=== PATIENT | female | born 1980 | race Caucasian/White ===

== ENCOUNTER 2024-06-13 13:15 | Outpatient (AMB) | payer OTHER, SELFPAY ==
[2024-06-13 13:18] VITALS: BP 152/98; PULSE 86; O2SAT 96; BMI 32.8
--- NOTE | 2024-06-13 13:18 | MHC.PC.OV ---
Vital Signs 06/13/24 13:18 Height 5 ft 5 in Weight 197 lb BMI 32.8 BP 152/98 H Blood Pressure Location Lt brachial Position Sitting Pulse 86 Pulse Source Pulse Oximeter Pulse Oximetry (%) 96 Oxygen Delivery Method Room Air Intake Visit Reasons: Establish Care Administrative Services Assistant Required: No Allergies No Known Allergies Allergy (Verified 06/13/24 13:34) Medication List - Last Reconciled 06/13/24 by Yvette Jameson PA-C No Known Home Meds Tobacco use date assessed: 06/13/24 Dental Screening Dental Screen Date: 06/13/24 Did you have a dental visit in the last 12 months?: Yes Did you have a dental problem in the last 6 months where you did not have access to dental care?: No Was dental information given to patient?: Patient has dentist HPI Establish Care HPI Details 44 year old female coming to the office for the first time. Previously a patient at [facility] last seen 2019. Patient has several concerns today. She has a history of migraines since she was an adolescent and has had several imaging studies completed to evaluate this concern. She continues to headaches to 3 times per week often triggered by the weather and we will have associated nausea with these migraines. She also mentions having a rash on bilateral lower extremities that appeared over summer and is now a dry irritated patch of skin that we will occasionally flare up. She also has several moles that have been changing over the years. Lastly she mentions 2 years ago she had an injury to the right elbow after pulling on a rope and hearing a pop in the right elbow followed by pain and over the last 4 months at elbow has been having increased pain. Denies any recent trauma to that area. [facility] Surgical History History of hysterectomy History of cholecystectomy Family History (Updated 06/13/24 @ 13:39 by Yvette Jameson PA-C) Mother Breast cancer Sister Breast cancer Thyroid cancer Social History Housing: House Patient Tobacco Use Status: Never used Tobacco service: No Current occupational status: employed Cognitive needs: No Hearing needs: No Vision needs: No Female Reproductive History Menstrual control method: none Questionnaire PHQ-9 Over the last 2 weeks, how often have you been bothered by any of the following problems? 1. Little interest or pleasure in doing things: not at all 2. Feeling down, depressed, or hopeless: not at all 3. Trouble falling or staying asleep, or sleeping too much: not at all 4. Feeling tired or having little energy: not at all 5. Poor appetite or overeating: not at all 6. Feeling bad about yourself - or that you are a failure or have let yourself or your family down: not at all 7. Trouble concentrating on things, such as reading the newspaper or watching television: not at all 8. Moving or speaking so slowly that other people could have noticed. Or the opposite - being so fidgety or restless that you have been moving around a lot more than usual: not at all 9. Thoughts that you would be better off or of hurting yourself in some way: not at all Total score: 0 Depression Screening Interpretation: Negative Depression Screening Done: Yes 96437 - PHQ-9 Billing: Yes Source: Developed by Drs. Johnie Grayson, Tiffanie Marinelli, Fan Fernando and colleagues, with an educational delmi from [employer]. Thrive Questionnaire Date Thrive assessed: 06/11/24 I am a: Patient What is your living situation today?: I have a steady place to live Within the past 12 months, did the food you bought not last and you didn't have the money to get more?: Never true Within the past 12 months, did you worry whether your food would run out before you got money to buy more?: Never true Do you have trouble paying for medicines?: No Do you have trouble getting transportation to medical appointments?: No Do you have trouble paying your heating and electricity bill?: No Do you have trouble taking care of your child, family member or friend?: No Do you have trouble with day-to-day activities such as bathing, preparing meals, shopping, managing finances, etc.?: No Are you currently unemployed and looking for a job?: No Are you interested in more education?: No Currently or been in a relationship where the following occur: No concerns reported THRIVE Score: 0 AUDIT C Alcohol Use Questionnaire (AUDIT-C) 1. How often do you have a drink containing alcohol?: Monthly or less 2. How many drinks containing alcohol do you have on a typical day when you are drinking?: 1 or 2 3. How often do you have six or more drinks on one occasion?: Never Total Score: 1 MORRIS-7 AMB Questionnaire MORRIS-7 Date MORRIS - 7 assessed: 06/13/24 Feeling nervous, anxious, or on edge: 1 = Several days Not being able to stop or control worryin = Several days Worrying too much about different things: 1 = Several days Trouble relaxin = Several days Being so restless that it is hard to sit still: 1 = Several days Becoming easily annoyed or irritable: 1 = Several days Feeling afraid as if something awful might happen: 0 = Not at all Total MORRIS-7 score (0-4 normal; 5-9 mild; 10-14 moderate; 15-21 severe): 6 Source: Developed by Drs. Johnie Grayson, Tiffanie Marinelli, Fan Fernando and colleagues, with an educational delmi from [employer]. MORRIS-7 Assessment Billing MORRIS-7 Assessment Tool: MORRIS-7 Assessment 79557 Review of Systems Const Denies body aches, Denies fatigue, Denies fever(s), Denies frequent falls, Reports headache(s) and Denies weakness Eyes Reports no additional complaints and Denies change in vision ENT Denies dizziness, Denies facial pain, Reports headache(s) and Denies nasal congestion Card Denies chest pain, Denies lightheadedness and Denies dyspnea Resp Denies dyspnea GI Denies abdominal pain, Denies constipation, Denies dyspepsia, Denies diarrhea, Reports nausea (with migraines) and Denies vomiting Musc Denies back pain and Denies myalgias Skin/Breast Reports as per HPI Neuro Denies dizziness, Denies frequent falls, Reports headache(s) and Denies weakness Psych Reports no additional complaints Endo Denies fatigue Physical exam (Primary Care) Vital Signs: Last Vital Signs Pulse 86 06/13/24 13:18 BP 152/98 H 06/13/24 13:18 Pulse Ox 96 06/13/24 13:18 Oxygen Delivery Method Room Air 06/13/24 13:18 BMI result Body Mass Index 32.8 Tobacco/Smoking Status: Tobacco use Status Tobacco use date assessed 06/13/24 06/13/24 13:19 Patient Tobacco Use Status Never used Tobacco 06/13/24 13:26 PHQ-9: PHQ-9 Score PHQ-9: Total score 0 06/13/24 13:26 Depression Screening Interpretation: Negative Thrive Assessment: Date of Thrive Assessment Date Thrive assessed 06/11/24 06/13/24 13:19 Currently or been in a relationship where the following occur: No concerns reported Const General: cooperative, healthy appearing, comfortable and no acute distress Orientation/consciousness: patient oriented x3 HENMT Head: Yes normocephalic Ears: hearing grossly normal bilaterally General nose exam: Normal external nose present Eyes General: appearance normal, both eyes and all related structures Conjunctivae: conjunctivae normal Neck Neck: Yes full ROM and Yes no lymphadenopathy Resp Effort & Inspection: normal respiratory effort Auscultation: clear to auscultation bilaterally, no crackles, no rales, no rhonchi and no wheezes Cardio Rate: regular rate Rhythm: regular rhythm Skin Other: Multiple small atypical nevi with irregular borders on the left forearm, left lower leg. Dry, scaly rash on he distal aspect of the left lower extremity and small annular patch of dry rash on the distal aspect of the right lower extremity General skin exam: no rashes or lesions noted Neuro General: patient oriented x3 Gait exam (Neuro): Normal gait present Extrem General: Yes normal to inspection, Yes full ROM and No edema Psych Affect: normal affect Attitude: cooperative Insight: Good insight present (Psych) Judgement: Good judgement present (Psych) Coding Level of Care Code New Pt Level 4 (19462) Diagnoses Elevated blood pressure reading without diagnosis of hypertension R03.0 Diarrhea R19.7 Contact dermatitis L25.9 Atypical nevi D22.9 Right elbow pain M25.521 Difficulty concentrating R41.840 Additional Codes MORRIS-7 Assessment Billing - MORRIS-7 Assessment Tool: MORRIS-7 Assessment 43717 ([id number]) Assessment & Plan Assessment & Plan (1) Elevated blood pressure reading without diagnosis of hypertension: Code(s): R03.0 - Elevated blood-pressure reading, without diagnosis of hypertension Category: Medical Plan: Patient's blood pressure was elevated on exam today 152/98 and elevated when retaken. Advised patient to obtain blood pressure cuff and take blood pressure 3 to 4 times per week and bring log of pressures to next appointment in 6 weeks. (2) Diarrhea: Code(s): R19.7 - Diarrhea, unspecified Category: Medical Plan: Patient has chronic diarrhea status post cholecystectomy and was previously on colestipol given to her by her previous PCP. Prescription sent. (3) Contact dermatitis: Code(s): L25.9 - Unspecified contact dermatitis, unspecified cause Category: Medical Plan: Patient had contact dermatitis on distal aspect of bilateral lower extremities. Prescription sent for triamcinolone lotion to be used as needed for irritation and itching. Advised patient not to use for longer than 2 weeks at a time. (4) Atypical nevi: Code(s): D22.9 - Melanocytic nevi, unspecified Category: Medical Plan: Referral to Dermatology placed at this time. Advised patient to take pictures of current lesions. (5) Right elbow pain: Code(s): M25.521 - Pain in right elbow Category: Medical Plan: Ordered for right elbow x-ray for further evaluation. (6) Difficulty concentrating: Code(s): R41.840 - Attention and concentration deficit Category: Medical Plan: Patient states she is having difficulty concentrating and has never been evaluated for ADHD in the past. She feels she has a hard time completing her daily activities due to difficulty concentrating and occasional memory loss. We will trial guanfacine 1 mg daily for attention and follow up in 6 weeks. Plan Ordered for updated blood work. Referral for mammogram placed and referral for routine gynecological exam is placed as well. This note was constructed using voice recognition software. While every effort has been made to ensure accuracy and environmental communications specialist, still areas may have been included sometimes these areas may affect the content or meeting of the given symptoms. Total time spent caring for the patient today was 30 minutes. This includes time spent before the visit reviewing the chart, time spent during the visit, and time spent after the visit and documentation. Orders: Orders Free T4 (Free Thyroxine) Today Z00.00 - Encounter for general adult medical examination without abnormal findings TSH reflex Free T4 Today Z00.00 - Encounter for general adult medical examination without abnormal findings Vitamin D 25-OH (D2 and D3) Today Z00.00 - Encounter for general adult medical examination without abnormal findings XR elbow RT 2V Today M25.521 - Pain in right elbow Complete Blood Count Auto Diff Today Z00.00 - Encounter for general adult medical examination without abnormal findings Comprehensive Met. Panel Today Z00.00 - Encounter for general adult medical examination without abnormal findings Lipid Panel Today Z00.00 - Encounter for general adult medical examination without abnormal findings Vitamin B12 and Folate Today Z00.00 - Encounter for general adult medical examination without abnormal findings Hemoglobin A1c Today Z00.00 - Encounter for general adult medical examination without abnormal findings MM tomosynthesis screening BI Today Z12.31 - Encounter for screening mammogram for malignant neoplasm of breast Referrals QUALITY CONTROL ENGINEERING TECHNICIAN Referral Z01.419 - Encounter for gynecological examination (general) (routine) without abnormal findings Dermatology Referral D22.9 - Melanocytic nevi, unspecified, L25.9 - Unspecified contact dermatitis, unspecified cause Medications: New colestipol 2 grams (2 x 1 gram) PO BID 60 tabs 2RF triamcinolone acetonide 0.1% 1 appl topical DAILY 60 mL 0RF guanfacine 1 mg PO BEDTIME 30 tabs 2RF
== END 2024-06-13 14:12 | disposition home or self-care (01) ==
DX: R03.0 Elevated blood-pressure reading, without diagnosis of hypertension (principal); R19.7 Diarrhea, unspecified; L25.9 Unspecified contact dermatitis, unspecified cause; D22.9 Melanocytic nevi, unspecified; M25.521 Pain in right elbow; R41.840 Attention and concentration deficit

== ENCOUNTER → 2024-06-13 13:17 | Outpatient (BNVA) | payer OTHER, SELFPAY | DX: R03.0 Elevated blood-pressure reading, without diagnosis of hypertension (principal); R19.7 Diarrhea, unspecified; L25.9 Unspecified contact dermatitis, unspecified cause; D22.9 Melanocytic nevi, unspecified; M25.521 Pain in right elbow; R41.840 Attention and concentration deficit | CPT/HCPCS: 96127 ==

== ENCOUNTER 2024-06-27 10:52 | Outpatient (REF) | payer OTHER, SELFPAY ==
--- NOTE | ~2024-06-27 | XR_ITS ---
EXAMINATION: XR ELBOW, RIGHT CLINICAL INFORMATION: Pain in right elbow M25.521. Patient states pain in elbow for a while. COMPARISON: None available TECHNIQUE: AP, lateral, and oblique views of the right elbow. FINDINGS: The bones and soft tissues are normal. No fracture or joint effusion. Alignment is anatomic. Joint spaces are maintained. XR/XR elbow RT 2V IMPRESSION: Normal right elbow. Electronically signed by: Yaron Banerjee MD 08/23/2024 09:30 AM B[facility]
[2024-06-27 11:06] LABS: MANUAL DIFF FLAG NO
[2024-06-27 12:02] LABS: Basophils Percent Auto 0.5 % (0-2); Eosinophils Absolute Auto 0.3 X10*3/uL (0.0-0.4); Eosinophils Percent Auto 3.4 % (0-4); Hematocrit 42.8 % (37.0-47.0); Hemoglobin 14.2 g/dl (12.0-16.0); Imm Gran Abs Auto 0.03 X10*3/uL (0.00-0.03); Imm Gran Pct Auto 0.4 % (0.0-0.4); Lymphocytes Absolute Auto 2.5 X10*3/uL (1.2-4.9); Lymphocytes Percent Auto 31.1 % (20-40); Mean Corpuscular HGB Conc 33.2 g/dl (31.0-35.0); Mean Corpuscular Hemoglobin 28.9 pg (27.0-33.0); Mean Platelet Volume 9.1 fL (9.4-12.3); Monocytes Absolute Auto 0.3 X10*3/uL (0.1-1.2); Monocytes Percent Auto 3.7 % (2-11); Neutrophils Absolute Auto 4.9 x10*3/uL (2.0-8.3); Neutrophils Percent Auto 60.9 % (45-73); Platelet Count 296 X10*3/uL (160-400); Red Blood Count 4.92 X10*6/uL (4.20-5.50); Red Cell Distribution Width 11.7 % (11.0-16.0)
[2024-06-27 12:08] LABS: Estimated Average Glucose 105 mg/dL; Hemoglobin A1C 126.8251 umol/L; Hemoglobin A1c % 5.3 % (<6.0); Total Hemoglobin (HGBA1C) 3742.2227 umol/L
[2024-06-27 12:53] LABS: Alanine Aminotransferase 24 U/L (0-31); Albumin Level 4.4 g/dL (3.5-5.0); Alkaline Phosphatase 82 U/L (39-117); Anion Gap 9 (12-20); Aspartate Amino Transferase 28 U/L (5-31); Bilirubin Total 0.3 mg/dL (0.0-1.0); Blood Urea Nitrogen 10 mg/dL (9-16); Calcium 9.4 mg/dL (8.4-10.2); Carbon Dioxide 29 mmol/L (22-29); Chloride 105 mmol/L (96-108); Cholesterol 170 mg/dL (<200); Estimated Glomerular Filt Rate > 60; Glucose Random 95 mg/dL (60-115); HDL Cholesterol 43 mg/dL (>40); LDL Cholesterol Calculated 90 mg/dL (<100); Sodium 139 mmol/L (135-145); Total Protein 7.4 g/dL (6.5-8.0); Triglycerides 185 mg/dL (<150)
[2024-06-27 12:55] LABS: TSH reflex Free T4 2.24 uIU/mL (0.32-4.0)
[2024-06-27 13:07] LABS: Folate 10.5 ng/mL (> or = 4.0); Vitamin B12 282 pg/mL (200-900)
[2024-07-01 14:09] LABS: Vitamin D 25-OH, D2 <4 ng/mL; Vitamin D 25-OH, D3 18 ng/mL; Vitamin D 25-OH, Total 18 ng/mL (30-100)
== END 2024-06-27 10:53 | disposition home or self-care (01) ==
LOC: HO.LAB 10:52
DX: Z00.00 Encounter for general adult medical examination without abnormal findings (principal); M25.521 Pain in right elbow; Z13.1 Encounter for screening for diabetes mellitus
CPT/HCPCS: 36415; 73070; 80053; 80061; 82306; 82607; 82746; 83036; 84439; 84443; 85025

== ENCOUNTER 2024-07-25 13:33 | Outpatient (REF) | payer OTHER, SELFPAY | END 2024-07-25 13:34 | disposition home or self-care (01) | LOC: HO.MAMMO 13:33 | DX: Z12.31 Encounter for screening mammogram for malignant neoplasm of breast (principal) | CPT/HCPCS: 77063; 77067 ==

== ENCOUNTER → 2024-07-25 13:45 | Outpatient (BNV) | payer OTHER, SELFPAY | PROVIDERS: Visit Provider Internal Medicine | DX: Z12.31 Encounter for screening mammogram for malignant neoplasm of breast (principal) | CPT/HCPCS: 77063; 77067 ==

== ENCOUNTER 2024-07-25 14:15 | Outpatient (AMB) | payer OTHER, SELFPAY ==
--- NOTE | 2024-07-25 14:27 | MHC.PC.OV ---
Vital Signs 07/25/24 14:28 Height 5 ft 5 in Weight 197 lb 4 oz BMI 32.8 BP 130/88 Blood Pressure Location Lt brachial Position Sitting Pulse 88 Pulse Source Pulse Oximeter Pulse Oximetry (%) 95 Oxygen Delivery Method Room Air Intake Visit Reasons: f/u BP Intake Note: Patient is here to follow up on BP. Warehouse Laborer Required: No Cook Larder: Not Required per policy Accompanied by: Self / Same As Patient Allergies No Known Allergies Allergy (Verified 07/25/24 14:28) Medication List - Last Reconciled 07/25/24 by Yvette Jameson PA-C colestipol 2 grams (2 x 1 gram) PO BID guanfacine 1 mg PO BEDTIME triamcinolone acetonide 0.1% 1 appl topical DAILY Tobacco use date assessed: 07/25/24 Dental Screening Dental Screen Date: 06/13/24 HPI f/u BP HPI Details 44-year-old female coming in for follow up. Blood pressures at home have been in the 130/86 range when taken. She feels the guanfacine has been helping with the blood pressure and with the attention. She is no longer having headaches in the morning but does feel that her ADHD could be better managed. She has an appointment with Dermatology in September. [facility] Surgical History History of hysterectomy History of cholecystectomy Family History (Updated 07/25/24 @ 14:28 by EDVIN Romero) Mother Breast cancer Sister Breast cancer Thyroid cancer Social History Housing: House Patient Tobacco Use Status: Never used Tobacco e-Cigarette/Vaping Use: Never Used Second Hand Smoke Exposure: No service: No Current occupational status: employed Cognitive needs: No Hearing needs: No Vision needs: No Questionnaire Thrive Questionnaire Date Thrive assessed: 06/11/24 I am a: Patient What is your living situation today?: I have a steady place to live Within the past 12 months, did the food you bought not last and you didn't have the money to get more?: Never true Within the past 12 months, did you worry whether your food would run out before you got money to buy more?: Never true Do you have trouble paying for medicines?: No Do you have trouble getting transportation to medical appointments?: No Do you have trouble paying your heating and electricity bill?: No Do you have trouble taking care of your child, family member or friend?: No Do you have trouble with day-to-day activities such as bathing, preparing meals, shopping, managing finances, etc.?: No Are you currently unemployed and looking for a job?: No Are you interested in more education?: No Please select the resources that you would like help with: None Currently or been in a relationship where the following occur: No concerns reported THRIVE Score: 0 MORRIS-7 AMB Questionnaire MORRIS-7 Date MORRIS - 7 assessed: 06/13/24 Source: Developed by Drs. Johnie Grayson, Tifafnie Marinelli, Fan Fernando and colleagues, with an educational delmi from [employer]. Review of Systems Const Denies body aches, Denies chills, Denies fever(s), Denies headache(s) and Denies poor appetite Eyes Reports no additional complaints ENT Denies dizziness and Denies headache(s) Card Denies chest pain, Denies irregular heart rhythm, Denies lightheadedness and Denies dyspnea Resp Denies cough and Denies dyspnea GI Denies abdominal pain, Denies constipation, Denies diarrhea, Denies nausea and Denies vomiting Reports no additional complaints Musc Reports no additional complaints and Denies abnormal gait Skin/Breast Reports system reviewed and no additional complaints, except as documented Neuro Denies abnormal gait, Denies dizziness and Denies headache(s) Psych Reports no additional complaints Physical exam (Primary Care) Vital Signs: Last Vital Signs Pulse 88 07/25/24 14:28 BP 130/88 07/25/24 14:28 Pulse Ox 95 07/25/24 14:28 Oxygen Delivery Method Room Air 07/25/24 14:28 BMI result Body Mass Index 32.8 Tobacco/Smoking Status: Tobacco use Status Tobacco use date assessed 07/25/24 07/25/24 14:34 Patient Tobacco Use Status Never used Tobacco 07/25/24 14:34 e-Cigarette/Vaping Use Never Used 07/25/24 14:34 Thrive Assessment: Date of Thrive Assessment Date Thrive assessed 06/11/24 07/25/24 14:34 Currently or been in a relationship where the following occur: No concerns reported Const General: cooperative, healthy appearing, comfortable and no acute distress Orientation/consciousness: patient oriented x3 HENMT Head: Yes normocephalic Ears: hearing grossly normal bilaterally General nose exam: Normal external nose present Eyes General: appearance normal, both eyes and all related structures Conjunctivae: conjunctivae normal Neck Neck: Yes full ROM and Yes no lymphadenopathy Resp Effort & Inspection: normal respiratory effort Auscultation: clear to auscultation bilaterally, no crackles, no rales, no rhonchi and no wheezes Cardio Rate: regular rate Rhythm: regular rhythm Skin General skin exam: no rashes or lesions noted Neuro General: patient oriented x3 Gait exam (Neuro): Normal gait present Extrem General: Yes normal to inspection, Yes full ROM and No edema Psych Affect: normal affect Attitude: cooperative Insight: Good insight present (Psych) Judgement: Good judgement present (Psych) Coding Level of Care Code Est Pt Level 3 (04295) Diagnoses Difficulty concentrating R41.840 Elevated blood pressure reading without diagnosis of hypertension R03.0 Assessment & Plan Assessment & Plan (1) Difficulty concentrating: Code(s): R41.840 - Attention and concentration deficit Category: Medical Plan: Feels her ADHD has been improving but still will have difficulty concentrating. We will increase guanfacine to 2 mg at nighttime. Follow up in 3 months. (2) Elevated blood pressure reading without diagnosis of hypertension: Code(s): R03.0 - Elevated blood-pressure reading, without diagnosis of hypertension Category: Medical Plan: Continue on current blood pressure medication. Avoid salt intake and encourage healthy diet and regular exercise. Blood pressure has been improving on guanfacine we will increase to 2 mg as it is still mildly elevated home. Follow up in 3 months Plan This note was constructed using voice recognition software. While every effort has been made to ensure accuracy and lunchroom attendant, still areas may have been included sometimes these areas may affect the content or meeting of the given symptoms. Total time spent caring for the patient today was 20 minutes. This includes time spent before the visit reviewing the chart, time spent during the visit, and time spent after the visit and documentation. Medications: New guanfacine 2 mg PO BEDTIME 30 tabs 0RF On Hold guanfacine Hold Comment: Dose Change 1 mg PO BEDTIME 30 tabs 2RF
[2024-07-25 14:28] VITALS: BP 130/88; PULSE 88; O2SAT 95; BMI 32.8
== END 2024-07-25 15:31 | disposition home or self-care (01) ==
DX: R41.840 Attention and concentration deficit (principal); R03.0 Elevated blood-pressure reading, without diagnosis of hypertension

== ENCOUNTER 2024-08-04 09:51 | Outpatient (AMB) | payer OTHER, SELFPAY ==
--- NOTE | 2024-08-04 09:53 | MHC.OFFVIS ---
Vital Signs 08/04/24 09:54 Height 5 ft 5 in Weight 202 lb BMI 33.6 BP 120/72 Intake Visit Reasons: New patient annual Glazing Department Supervisor Required: No Information Interpreted: clinical only Assistant Education Director: Assistant Education Director Present Allergies No Known Allergies Allergy (Verified 08/04/24 09:54) Medication List - Last Reconciled 08/04/24 by Jessenia Mason CNM colestipol 2 grams (2 x 1 gram) PO BID guanfacine 1 mg PO BEDTIME guanfacine 2 mg PO BEDTIME triamcinolone acetonide 0.1% 1 appl topical DAILY Is last menstrual period known: No (hysterectomy,2019) HPI HPI New patient annual: Details: Patient is here for registered pharmacist exam. She receives her primary care through new insurance at [facility]. Her only issues are ADHD and mild elevated blood pressures for which she is treated with the same medication seems to be helping with both. She is planning to try and better and work on increasing her exercise back to previous levels as she has gradually gained more weight. She has had fasting blood work done says the was triglycerides and she has recently had a mammogram. 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 She had a hysterectomy in 2019 because of a very enlarged uterus from fibroids. It was causing pain and pressure and bleeding all relieved by the hysterectomy she had her postoperative exam and then everything close down after COVID. And then her doctor at [facility] retired. She has no concerns at all about STDs she does not remember ever having had an abnormal Pap smear and she has no abnormal discharge but she is open to screening with the vaginal testing [facility] Surgical History (Updated 08/04/24 @ 10:51 by Jessenia Mason CNM) History of hysterectomy History of cholecystectomy Family History Mother Breast cancer Sister Breast cancer Thyroid cancer Social History Housing: House Patient Tobacco Use Status: Never used Tobacco e-Cigarette/Vaping Use: Never Used Second Hand Smoke Exposure: No service: No Current occupational status: employed Cognitive needs: No Hearing needs: No Vision needs: No Female Reproductive History Menstrual Age of Menarche: 11 Duration of menses: 3-5 days control method: none Total pregnancies: 2 Full term: 2 History of abnormal pap smear: No (2019,negative per pt.) Date of Mammogram: 07/25/24 (pending) Physical Exam Vital Signs: Last Vital Signs BP 120/72 08/04/24 09:54 BMI result Body Mass Index 33.6 Const General: healthy appearing, comfortable, no acute distress, well developed and alert Nutritional Appearance: average body habitus Orientation/consciousness: patient oriented x3 Limitations: no limitations HEENT Head: Yes normocephalic Neck Neck: Yes normal visual inspection Thyroid: Thyroid normal Chest Chest palpation & inspection: normal inspection of the chest Breast/axilla inspection: normal inspection of the breasts and normal inspection of the axillae Breast/axilla palpation: normal palpation of the breasts and normal palpation of the axillae Resp Effort & Inspection: normal respiratory effort GI Inspection: Yes normal to inspection, No Abdominal wall edema and No distended Palpation (GI): Soft to palpation and nontender General: Yes bladder normal to palpation External Female Exam: normal external appearance and normal appearance of the urethra Speculum Exam - Vagina: normal appearance of the vagina, normal palpation and normal vaginal discharge Bimanual exam- vagina & uterus: normal bimanual exam, normal palpation, bladder normal to palpation, consistency normal and non-tender Bimanual Exam- Adnexa, other: normal adnexae, no masses, normal and No adnexal tenderness Neuro General: patient oriented x3 Assessment & Plan Assessment & Plan (1) Well woman exam: Code(s): Z01.419 - Encounter for gynecological examination (general) (routine) without abnormal findings Category: Medical (2) Elevated blood pressure reading without diagnosis of hypertension: Code(s): R03.0 - Elevated blood-pressure reading, without diagnosis of hypertension Category: Medical (3) Perimenopause: Code(s): N95.1 - Menopausal and female climacteric states Category: Medical (4) History of hysterectomy: Comment: For symptomatic very enlarged fibroid uterus 14-16wsize by her description, 2019, nicole Moctezuma Code(s): Z90.710 - Acquired absence of both cervix and uterus Category: Surgical (5) Cervical cancer screening: Comment: States she has no history of abnormal Pap smears or HPV co testing past. Hysterectomy was done for benign/fibroid reason. No further Paps indicated Code(s): Z12.4 - Encounter for screening for malignant neoplasm of cervix Category: Medical Plan -----Discussed in this visit the following: healthy balanced diet, regular and consistent exercise, getting recommended health screens, doing the best she can for her particular health concerns, kegel exercises, pap smear screening and followup recommendations, mammography screening and SBE, normal changes in cycles in her life stage--- . Reviewed normal dio menopausal symptoms that women in her age group we will experience more as time goes by. Reviewed healthy diet exercise and weight. She is determined to get back her spin bike and do 30 minutes which is 12 miles for her. She has no concerns about STDs she has never had an abnormal Pap smear and reviewed the asccp guidelines so she never another pap. Discussed cyclic changes that she may still experience and how these are definitely protecting her health. She is going to be working it and diet and exercise. Reviewed that while we say yearly she has a absolutely registered pharmacist concerns needs to direct her health care visits a dollars to more visits that is her choice recommend yearly mammograms she is getting. Coding Level of Care Code New Pt Prev Care 40-64y(89475) Diagnoses Well woman exam Z01.419 Elevated blood pressure reading without diagnosis of hypertension R03.0 Perimenopause N95.1 History of hysterectomy Z90.710 Cervical cancer screening Z12.4
[2024-08-04 09:54] VITALS: BP 120/72; BMI 33.6
== END 2024-08-04 10:42 | disposition home or self-care (01) ==
PROVIDERS: Visit Provider Advanced Practice Midwife
DX: Z01.419 Encounter for gynecological examination (general) (routine) without abnormal findings (principal); R03.0 Elevated blood-pressure reading, without diagnosis of hypertension; N95.1 Menopausal and female climacteric states; Z90.710 Acquired absence of both cervix and uterus
CPT/HCPCS: 99386; 99459

== ENCOUNTER 2024-10-24 09:53 | Outpatient (AMB) | payer OTHER, SELFPAY ==
--- NOTE | 2024-10-24 09:58 | A.OFFPC_ITS ---
Vital Signs 10/24/24 10:00 10/24/24 10:27 Height 5 ft 5 in Weight 198 lb 4 oz BMI 33.0 BP 130/60 128/86 Blood Pressure Location Lt brachial Lt brachial Position Sitting Sitting Pulse 75 Pulse Source Pulse Oximeter Temp 97.7 F Temp Source Temporal Artery Scan Pulse Oximetry (%) 98 Oxygen Delivery Method Room Air Intake Visit Reasons: annual physical Intake Note: Patient is here today for a physical. Warehouse Representative Required: No Digital Printer Operator: Not Required per policy Accompanied by: Self / Same As Patient Allergies No Known Allergies Allergy (Verified 10/24/24 10:01) Medication List - Last Reconciled 10/24/24 by Yvette Jameson PA-C colestipol 2 grams (2 x 1 gram) PO BID guanfacine 1 mg PO BEDTIME guanfacine 2 mg PO BEDTIME triamcinolone acetonide 0.1% 1 appl topical DAILY Tobacco use date assessed: 10/24/24 Dental Screening Dental Screen Date: 10/24/24 Did you have a dental visit in the last 12 months?: Yes Did you have a dental problem in the last 6 months where you did not have access to dental care?: No Was dental information given to patient?: Patient has dentist HPI annual physical HPI Details 44-year-old female with past medical his tory of elevated blood pressure, perimenopause, difficulty concentrating and obesity last seen 07/2024 coming in for annual exam.? In review of the notes, patient was seen by Gynecology 08/04/2024 for annual Pap smear. Presenting for a wellness visit focused on chronic disease management and preventive care. She has a history of Essential Hypertension, currently treated with guanfacine. The medication also aids in mild ADHD symptoms, though its effectiveness fluctuates. She was previously diagnosed with Generalized Anxiety Disorder, experiencing significant improvement after personal life changes. She reports weight gain secondary to changes in dietary and exercise habits and desires to establish a more structured exercise routine. Mammogram: Completed 07/2024 Pap smear: Recently completed 07/2024 Colonoscopy: Referral placed today to [facility] Medical History Vaginal discharge Surgical History History of hysterectomy History of cholecystectomy Family History Mother Breast cancer Sister Breast cancer Thyroid cancer Social History Housing: House Patient Tobacco Use Status: Never used Tobacco e-Cigarette/Vaping Use: Never Used Second Hand Smoke Exposure: No service: No Current occupational status: employed Cognitive needs: No Hearing needs: No Vision needs: No Female Reproductive History Menstrual Age of Menarche: 11 Questionnaire PHQ-9 Over the last 2 weeks, how often have you been bothered by any of the following problems? 1. Little interest or pleasure in doing things: not at all 2. Feeling down, depressed, or hopeless: not at all 3. Trouble falling or staying asleep, or sleeping too much: several days 4. Feeling tired or having little energy: several days 5. Poor appetite or overeating: not at all 6. Feeling bad about yourself - or that you are a failure or have let yourself or your family down: not at all 7. Trouble concentrating on things, such as reading the newspaper or watching television: several days 8. Moving or speaking so slowly that other people could have noticed. Or the opposite - being so fidgety or restless that you have been moving around a lot more than usual: not at all 9. Thoughts that you would be better off or of hurting yourself in some way: not at all Total score: 3 Depression Screening Interpretation: Negative Depression Screening Done: Yes Source: Developed by Drs. Johnie Grayson, Tiffanie Marinelli, Fan Fernando and colleagues, with an educational delmi from [employer]. Thrive Questionnaire Date Thrive assessed: 10/17/24 I am a: Patient What is your living situation today?: I have a steady place to live Within the past 12 months, did the food you bought not last and you didn't have the money to get more?: Never true Within the past 12 months, did you worry whether your food would run out before you got money to buy more?: Never true Do you have trouble paying for medicines?: No Do you have trouble getting transportation to medical appointments?: No Do you have trouble paying your heating and electricity bill?: No Do you have trouble taking care of your child, family member or friend?: No Do you have trouble with day-to-day activities such as bathing, preparing meals, shopping, managing finances, etc.?: No Are you currently unemployed and looking for a job?: No Are you interested in more education?: No Please select the resources that you would like help with: None Currently or been in a relationship where the following occur: No concerns reported THRIVE Score: 0 AUDIT C Alcohol Use Questionnaire (AUDIT-C) 1. How often do you have a drink containing alcohol?: Never 2. How many drinks containing alcohol do you have on a typical day when you are drinking?: 1 or 2 3. How often do you have six or more drinks on one occasion?: Never Total Score: 0 MORRIS-7 AMB Questionnaire MORRIS-7 Date MORRIS - 7 assessed: 10/24/24 Feeling nervous, anxious, or on edge: 1 = Several days Not being able to stop or control worryin = Several days Worrying too much about different things: 1 = Several days Trouble relaxin = Several days Being so restless that it is hard to sit still: 0 = Not at all Becoming easily annoyed or irritable: 1 = Several days Feeling afraid as if something awful might happen: 0 = Not at all Total MORRIS-7 score (0-4 normal; 5-9 mild; 10-14 moderate; 15-21 severe): 5 Source: Developed by Drs. Johnie Grayson, Tiffanie Marinelli, Fan Fernando and colleagues, with an educational delmi from [employer]. MORRIS-7 Assessment Billing MORRIS-7 Assessment Tool: MORRIS-7 Assessment 95918 Review of Systems Const Denies body aches, Denies chills, Denies fever(s), Denies headache(s) and Denies poor appetite Eyes Reports no additional complaints ENT Denies dysphagia, Denies dizziness, Denies headache(s) and Denies odynophagia Card Denies chest pain, Denies syncope, Denies edema, Denies irregular heart rhythm, Denies lightheadedness and Denies dyspnea Resp Denies cough and Denies dyspnea GI Denies abdominal pain, Denies constipation, Denies dysphagia, Denies diarrhea, Denies nausea, Denies odynophagia and Denies vomiting Reports no additional complaints Musc Reports no additional complaints and Denies abnormal gait Skin/Breast Reports system reviewed and no additional complaints, except as documented Neuro Denies abnormal gait, Denies dizziness, Denies syncope and Denies headache(s) Psych Reports no additional complaints Physical exam (Primary Care) Vital Signs: Last Vital Signs Temp 97.7 F 10/24/24 10:00 Pulse 75 10/24/24 10:00 BP 128/86 10/24/24 10:27 Pulse Ox 98 10/24/24 10:00 Oxygen Delivery Method Room Air 10/24/24 10:00 BMI result Body Mass Index 33.0 Tobacco/Smoking Status: Tobacco use Status Tobacco use date assessed 10/24/24 10/24/24 10:00 Patient Tobacco Use Status Never used Tobacco 10/24/24 10:00 e-Cigarette/Vaping Use Never Used 10/24/24 10:00 PHQ-9: PHQ-9 Score PHQ-9: Total score 3 10/24/24 10:24 Depression Screening Interpretation: Negative Thrive Assessment: Date of Thrive Assessment Date Thrive assessed 10/17/24 10/24/24 10:00 Currently or been in a relationship where the following occur: No concerns reported Const General: cooperative, healthy appearing, comfortable and no acute distress Orientation/consciousness: patient oriented x3 HENMT Head: Yes normocephalic Ears: hearing grossly normal bilaterally, external ears normal, TM's normal bilaterally and EAC's normal General nose exam: Normal external nose present Face and sinus: Yes normal facial exam and Yes sinuses nontender Mouth: Normal oral and palatal mucosa present and tongue normal Throat: Yes posterior oropharynx normal Eyes General: appearance normal, both eyes and all related structures Conjunctivae: conjunctivae normal Pupils: Equal, round and reactive pupils present EOM: EOMs intact bilaterally and No Nystagmus present Neck Neck: Yes normal visual inspection, Yes full ROM and Yes no lymphadenopathy Chest Chest palpation & inspection: normal inspection of the chest Resp Effort & Inspection: normal respiratory effort Auscultation: clear to auscultation bilaterally, no crackles, no rales, no rhonchi, no wheezes and breath sounds present Cardio Rate: regular rate Rhythm: regular rhythm Peripheral pulses: radial pulses present and dorsalis pedis present GI Inspection: Yes normal to inspection and No Abdominal wall edema Palpation (GI): Soft to palpation, not firm and nontender Auscultation: normal bowel sounds Rectal Exam - Female: deferred General: Yes no CVA tenderness Back/Spine/Pelvis Back: no CVA tenderness Skin General skin exam: no rashes or lesions noted Neuro General: patient oriented x3 Cranial nerves: Yes Equal, round and reactive pupils present, Yes Midline tongue present, Yes Ability to bilaterally elevate shoulders present and No Nystagmus present Gait exam (Neuro): Normal gait present Extrem General: Yes normal to inspection, Yes full ROM, No no pedal edema and No edema Psych Speech and movement: Normal speech and movement present Affect: normal affect Insight: Good insight present (Psych) Judgement: Good judgement present (Psych) Coding Level of Care Code Est Pt Prev Care 40-64y(37917) Diagnoses Family history of breast cancer Z80.3 Cervical cancer screening Z12.4 Difficulty concentrating R41.840 Atypical nevi D22.9 Elevated blood pressure reading without diagnosis of hypertension R03.0 Annual physical exam Z00.00 Obesity (BMI 30.0-34.9) E66.811 Diarrhea R19.7 Additional Codes MORRIS-7 Assessment Billing - MORRIS-7 Assessment Tool: MORRIS-7 Assessment 20825 ([id number]) Assessment & Plan Assessment & Plan (1) Family history of breast cancer: Code(s): Z80.3 - Family history of malignant neoplasm of breast Category: Medical Plan: Mammogram recently completed 07/1024 continue with yearly screening (2) Cervical cancer screening: Comment: States she has no history of abnormal Pap smears or HPV co testing past. Hysterectomy was done for benign/fibroid reason. No further Paps indicated Code(s): Z12.4 - Encounter for screening for malignant neoplasm of cervix Category: Medical Plan: Recently completed by Gynecology 07/2024 (3) Difficulty concentrating: Code(s): R41.840 - Attention and concentration deficit Category: Medical Plan: Patient currently on guanfacine 2 mg at bedtime and finds this mildly beneficial. Plan to add Atomoxetine to medication regimen and follow up in 3 months. (4) Atypical nevi: Code(s): D22.9 - Melanocytic nevi, unspecified Category: Medical Plan: Referral was placed to dermatology at last visit. She has seen the spanish interpreter and is happy the nevi seem to be resolving with treatement. (5) Elevated blood pressure reading without diagnosis of hypertension: Code(s): R03.0 - Elevated blood-pressure reading, without diagnosis of hypertension Category: Medical Plan: Blood pressure at goal today continue on the Guanfacine. Avoid salt intake and encourage healthy diet and regular exercise. (6) Annual physical exam: Code(s): Z00.00 - Encounter for general adult medical examination without abnormal findings Category: Medical Plan: Patient is up-to-date on all recommended routine screenings and vaccinations for her age. Blood work is up-to-date and referral was placed to gastroenterology today for colonoscopy screening. (7) Obesity (BMI 30.0-34.9): Code(s): E66.811 - Obesity, class 1 Category: Medical Plan: Healthy diet and regular exercise is encouraged. Behavioral modifications addressing lifestyle changes were reinforced, particularly in the domains of exercise and dietary intake. (8) Diarrhea: Code(s): R19.7 - Diarrhea, unspecified Category: Medical Plan: Patient having diarrhea status post cholecystectomy on colestipol and has good improvement with this medication. Plan This note was constructed using voice recognition software. While every effort has been made to ensure accuracy and tire builder heavy service, still areas may have been included sometimes these areas may affect the content or meeting of the given symptoms. Total time spent caring for the patient today was thirty minutes. This includes time spent before the visit reviewing the chart, time spent during the visit, and time spent after the visit and documentation. Patient was informed and verbally consented to the use of an ambient scribe for clinic note documentation during this visit. Orders: Referrals Gastroenterology Referral Z12.11 - Encounter for screening for malignant neoplasm of colon Medications: New atomoxetine 40 mg PO DAILY 60 caps 0RF Discontinued guanfacine Discontinued Reason: Patient no longer taking 1 mg PO BEDTIME 30 tabs 2RF
[2024-10-24 10:00] VITALS: BP 130/60; PULSE 75; TEMP 36.5; O2SAT 98; BMI 33.0
[2024-10-24 10:27] VITALS: BP 128/86
== END 2024-10-24 10:33 | disposition home or self-care (01) ==
LOC: HO.HMCH 09:54
DX: Z00.00 Encounter for general adult medical examination without abnormal findings (principal); E66.811 Obesity, class 1; Z68.33 Body mass index [BMI] 33.0-33.9, adult; Z80.3 Family history of malignant neoplasm of breast; R41.840 Attention and concentration deficit; D22.9 Melanocytic nevi, unspecified; R03.0 Elevated blood-pressure reading, without diagnosis of hypertension; R19.7 Diarrhea, unspecified

== ENCOUNTER → 2024-10-24 09:53 | Outpatient (BNVA) | payer OTHER, SELFPAY | DX: Z00.00 Encounter for general adult medical examination without abnormal findings (principal); R41.840 Attention and concentration deficit; D22.9 Melanocytic nevi, unspecified; R03.0 Elevated blood-pressure reading, without diagnosis of hypertension; E66.811 Obesity, class 1; Z68.33 Body mass index [BMI] 33.0-33.9, adult; R19.7 Diarrhea, unspecified; Z80.3 Family history of malignant neoplasm of breast | CPT/HCPCS: 96127 ==

== ENCOUNTER 2025-01-23 09:58 | Outpatient (AMB) | payer OTHER, SELFPAY ==
--- NOTE | 2025-01-23 10:06 | MHC.PC.OV ---
Vital Signs 01/23/25 10:08 Height 5 ft 5 in Weight 202 lb 4 oz BMI 33.7 BP 122/72 Blood Pressure Location Lt brachial Position Sitting Pulse 77 Pulse Source Pulse Oximeter Temp 97.3 F Temp Source Temporal Artery Scan Pulse Oximetry (%) 96 Oxygen Delivery Method Room Air Intake Visit Reasons: 3 Month F/U Intake Note: Patient is here to follow up on Difficulty concentrating. 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 The patient reports that her blood pressure has been well-controlled with guanfacine, and she monitors it regularly at home. The patient experiences brain fog, itchy skin, and weight gain, which she attributes to hormonal changes following a hysterectomy in 2018, with ovaries left intact. The patient has been taking an soid-aha-edjeofx supplement called Over 40 Hormone Support, which she feels helps with her hot flashes. She is exploring lifestyle changes, including exercise, to manage her weight and symptoms. She did not start on atomoxetine for her ADHD because she was afraid of the side effects. She feels her ADHD is well managed with meditation techniques and guanfacine. [facility] Medical History Vaginal discharge Surgical History History of hysterectomy History of cholecystectomy Family History Mother Breast cancer Sister Breast cancer Thyroid cancer Social History Housing: House Alcohol intake: never Patient Tobacco Use Status: Never used Tobacco e-Cigarette/Vaping Use: Never Used Second Hand Smoke Exposure: No service: No Current occupational status: employed Cognitive needs: No Hearing needs: No Vision needs: No Female Reproductive History Menstrual Age of Menarche: 11 Questionnaire Thrive Questionnaire Date Thrive assessed: 10/17/24 I am a: Patient What is your living situation today?: I have a steady place to live Within the past 12 months, did the food you bought not last and you didn't have the money to get more?: Never true Within the past 12 months, did you worry whether your food would run out before you got money to buy more?: Never true Do you have trouble paying for medicines?: No Do you have trouble getting transportation to medical appointments?: No Do you have trouble paying your heating and electricity bill?: No Do you have trouble taking care of your child, family member or friend?: No Do you have trouble with day-to-day activities such as bathing, preparing meals, shopping, managing finances, etc.?: No Are you currently unemployed and looking for a job?: No Are you interested in more education?: No Please select the resources that you would like help with: None Currently or been in a relationship where the following occur: No concerns reported THRIVE Score: 0 MORRIS-7 AMB Questionnaire MORRIS-7 Date MORRIS - 7 assessed: 10/24/24 Source: Developed by Drs. Johnie Grayson, Tiffanie Marinelli, Fan Fernando and colleagues, with an educational delmi from [employer]. Review of Systems Const Denies body aches, Denies chills, Denies fever(s), Denies headache(s) and Denies poor appetite Eyes Reports no additional complaints ENT Denies dizziness and Denies headache(s) Card Denies chest pain, Denies lightheadedness and Denies dyspnea Resp Denies dyspnea GI Denies abdominal pain, Denies constipation, Denies diarrhea, Denies nausea and Denies vomiting Details: suprapubic pain Reports no additional complaints Musc Reports no additional complaints and Denies abnormal gait Skin/Breast Reports system reviewed and no additional complaints, except as documented Neuro Denies abnormal gait, Denies dizziness and Denies headache(s) Psych Reports no additional complaints Physical exam (Primary Care) Vital Signs: Last Vital Signs Temp 97.3 F 01/23/25 10:08 Pulse 77 01/23/25 10:08 BP 122/72 01/23/25 10:08 Pulse Ox 96 01/23/25 10:08 Oxygen Delivery Method Room Air 01/23/25 10:08 BMI result Body Mass Index 33.7 Tobacco/Smoking Status: Tobacco use Status Tobacco use date assessed 01/23/25 01/23/25 10:10 Patient Tobacco Use Status Never used Tobacco 01/23/25 10:12 e-Cigarette/Vaping Use Never Used 01/23/25 10:12 Thrive Assessment: Date of Thrive Assessment Date Thrive assessed 10/17/24 01/23/25 10:10 Currently or been in a relationship where the following occur: No concerns reported Const General: cooperative, healthy appearing, comfortable and no acute distress Orientation/consciousness: patient oriented x3 HENMT Head: Yes normocephalic Ears: hearing grossly normal bilaterally General nose exam: Normal external nose present Eyes General: appearance normal, both eyes and all related structures Conjunctivae: conjunctivae normal Neck Neck: Yes full ROM and Yes no lymphadenopathy Resp Effort & Inspection: normal respiratory effort Auscultation: clear to auscultation bilaterally, no crackles, no rales, no rhonchi and no wheezes Cardio Rate: regular rate Rhythm: regular rhythm Skin General skin exam: no rashes or lesions noted Neuro General: patient oriented x3 Gait exam (Neuro): Normal gait present Extrem General: Yes normal to inspection, Yes full ROM and No edema Psych Affect: normal affect Attitude: cooperative Insight: Good insight present (Psych) Judgement: Good judgement present (Psych) Coding Level of Care Code Est Pt Level 3 (96170) Diagnoses Difficulty concentrating R41.840 Elevated blood pressure reading without diagnosis of hypertension R03.0 Obesity (BMI 30.0-34.9) E66.811 Assessment & Plan Assessment & Plan (1) Difficulty concentrating: Code(s): R41.840 - Attention and concentration deficit Category: Medical Plan: Patient currently on guanfacine 2 mg at bedtime and finds this mildly beneficial. The plan was initially to add atomoxetine to the medication regimen which patient did not do. She would like to continue with meditation techniques and guanfacine at this time. (2) Elevated blood pressure reading without diagnosis of hypertension: Code(s): R03.0 - Elevated blood-pressure reading, without diagnosis of hypertension Category: Medical Plan: Blood pressure at goal today continue on the Guanfacine. Avoid salt intake and encourage healthy diet and regular exercise. (3) Obesity (BMI 30.0-34.9): Code(s): E66.811 - Obesity, class 1 Category: Medical Plan: Healthy diet and regular exercise is encouraged. Behavioral modifications addressing lifestyle changes were reinforced, particularly in the domains of exercise and dietary intake. Plan The patient will continue monitoring her blood pressure at home, as it is well-controlled with guanfacine. For menopausal symptoms, the patient is advised to continue using the Over 40 Hormone Support supplement if she finds it beneficial for her hot flashes. She is encouraged to explore lifestyle modifications, including increased physical activity, to manage weight and improve overall well-being. Given her family history of breast cancer, the patient should discuss the risks and benefits of hormone replacement therapy with her nurse orthopedic. Further imaging may be required following her recent mammogram, and she should complete the necessary paperwork for this process. This note was constructed using voice recognition software. While every effort has been made to ensure accuracy and bag shop worker, still areas may have been included sometimes these areas may affect the content or meeting of the given symptoms. Total time spent caring for the patient today was 20 minutes. This includes time spent before the visit reviewing the chart, time spent during the visit, and time spent after the visit and documentation. Patient was informed and verbally consented to the use of an ambient scribe for clinic note documentation during this visit.
[2025-01-23 10:08] VITALS: BP 122/72; PULSE 77; TEMP 36.3; O2SAT 96; BMI 33.7
== END 2025-01-23 11:03 | disposition home or self-care (01) ==
LOC: HO.HMCH 09:58
DX: R41.840 Attention and concentration deficit (principal); R03.0 Elevated blood-pressure reading, without diagnosis of hypertension; E66.811 Obesity, class 1; Z68.33 Body mass index [BMI] 33.0-33.9, adult

== ENCOUNTER 2025-04-03 08:45 | Outpatient (REF) | payer OTHER, SELFPAY ==
[2025-04-04 20:18] LABS: Transglutaminase Ab IgG <1.0 U/mL
== END 2025-04-03 08:46 | disposition home or self-care (01) ==
LOC: HO.LAB 08:45
PROVIDERS: Visit Provider Nurse Practitioner Family
DX: Z12.11 Encounter for screening for malignant neoplasm of colon (principal); K58.2 Mixed irritable bowel syndrome; K91.5 Postcholecystectomy syndrome; R15.9 Full incontinence of feces; R10.9 Unspecified abdominal pain
CPT/HCPCS: 36415; 86364

== ENCOUNTER 2025-04-03 08:45 | Outpatient (AMB) | payer OTHER, SELFPAY ==
--- NOTE | 2025-04-03 08:47 | MHC.OFFVIS ---
Vital Signs 04/03/25 08:52 Height 5 ft 5 in Weight 199 lb BMI 33.1 BP 138/98 H Blood Pressure Location Lt brachial Position Sitting Pulse 86 Pulse Source Pulse Oximeter Pulse Oximetry (%) 95 Oxygen Delivery Method Room Air Intake Visit Reasons: Alpha screening Intake Note: New pt for initial colo screening. CC: C.O. frequent diarrhea, abd cramping. Pt states that her sx have been progressively worse since having her cholecystectomy in ~ 2009. 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 female is here today for pre colonoscopy screening.? Patient was sent to us by her PCP.? This is her first colonoscopy screening.? Patient reports that since she had her cholecystectomy she has been having postprandial diarrhea. Patient reports that no matter what she eats or drinks she will have loose stools. Patient is taking colestipol as needed, however patient reports that she is not feeling well when she takes it. Denies any personal or family history of gastrointestinal disease, colon polyps, or CRC.? Denies history of difficulty with sedation or anesthesia in the past.? Negative for history of sleep apnea.? Denies any history of cardiac, renal, pulmonary, or hepatic disease.?? No history of infectious? diseases like hepatitis A, B, C, HIV or tuberculosis.? Patient is not on any anticoagulation [facility] Medical History Vaginal discharge Surgical History History of hysterectomy History of cholecystectomy Family History Mother Breast cancer Sister Breast cancer Thyroid cancer Social History Housing: House Alcohol intake: never Patient Tobacco Use Status: Never used Tobacco e-Cigarette/Vaping Use: Never Used Second Hand Smoke Exposure: No service: No Current occupational status: employed Cognitive needs: No Hearing needs: No Vision needs: No Female Reproductive History Menstrual Age of Menarche: 11 Physical Exam Vital Signs: Last Vital Signs Pulse 86 04/03/25 08:52 BP 138/98 H 04/03/25 08:52 Pulse Ox 95 04/03/25 08:52 Oxygen Delivery Method Room Air 04/03/25 08:52 BMI result Body Mass Index 33.1 Assessment & Plan Assessment & Plan (1) Screen for colon cancer: Code(s): Z12.11 - Encounter for screening for malignant neoplasm of colon (2) Postprandial diarrhea: Code(s): K52.9 - Noninfective gastroenteritis and colitis, unspecified (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 Patient reports postprandial diarrhea. Patient reports that even if she has something to drink she will have loose stools. This has been happening ever since she had her cholecystectomy. Will check transglutaminase, CRP to rule out inflammatory bowel disease. Check fecal calprotectin. Check malabsorption issues. Will start her on colesevelam twice a day low-dose hopefully this will help control her diarrhea. Denies any issues with anesthesia in the past.? Denies any history of sleep apnea.? No history infectious diseases in the past or present.? Not on any anticoagulation therapy.? No family or personal history of colon cancer or polyps.? Patient denies melena, hematochezia, unintentional weight loss or ribbon like stools.? Discussed at length the pre-procedure,? prep, diet & medications as well as what to expect prior, during and after the procedure.?? Stressed the importance of good bowel prep.? Recommended the use of Vaseline or Calmoseptine OTC & baby wipes with bowel movements to promote comfort.? ?Patient verbalizes understanding and agrees to plan of care.? She was given the opportunity to ask questions and all questions answered.? We will see her after the procedure.? Orders: Orders Transglutaminase Ab IgG Today R10.9 - Unspecified abdominal pain TSH reflex Free T4 Today K59.00 - Constipation, unspecified Vitamin B12 and Folate Today R19.7 - Diarrhea, unspecified Vitamin D 25-OH (D2 and D3) Today E55.9 - Vitamin D deficiency, unspecified Calprotectin, Fecal Today R15.9 - Full incontinence of feces Transglutaminase IgA Today R10.9 - Unspecified abdominal pain CDiff Gene PCR Today R19.7 - Diarrhea, unspecified Fecal Fat Qualitative Today R19.7 - Diarrhea, unspecified C Reactive Protein Today K58.9 - Irritable bowel syndrome, unspecified Medications: New colesevelam (WelChol) 625 mg PO BID 60 tabs 2RF bisacodyl (Dulcolax (bisacodyl)) take 4 tabs at noon the day before your colonoscopy 20 mg (4 x 5 mg) PO ONCE 4 tabs 0RF constipation 1 day Z12.11 - Encounter for screening for malignant neoplasm of colon polyethylene glycol 3350 (Miralax) As directed by gastroenterology department at [facility] 238 grams PO ONCE 238 grams 0RF Z12.11 - Encounter for screening for malignant neoplasm of colon Discontinued colestipol Discontinued Reason: Doctor's Order 2 grams (2 x 1 gram) PO BID 60 tabs 2RF Coding Level of Care Code New Pt Level 4 (77240) Diagnoses Screen for colon cancer Z12.11 Postprandial diarrhea K52.9 Post-cholecystectomy syndrome K91.5 Time Spent (min) 50 Comment 35 minutes spent with patient and additional 15 minutes spent reviewing her records
[2025-04-03 08:52] VITALS: BP 138/98; PULSE 86; O2SAT 95; BMI 33.1
== END 2025-04-03 09:25 | disposition home or self-care (01) ==
LOC: HO.HGI 08:46
PROVIDERS: Visit Provider Nurse Practitioner Family
DX: Z01.818 Encounter for other preprocedural examination (principal); Z12.11 Encounter for screening for malignant neoplasm of colon; K52.9 Noninfective gastroenteritis and colitis, unspecified; K91.5 Postcholecystectomy syndrome
CPT/HCPCS: 99204

== ENCOUNTER 2025-04-04 11:57 | Outpatient (REF) | payer OTHER, SELFPAY ==
[2025-04-04 13:44] LABS: CDiff Gene PCR NEGATIVE (Negative)
== END 2025-04-04 11:58 | disposition home or self-care (01) ==
LOC: HO.LNP 11:57
PROVIDERS: Visit Provider Nurse Practitioner Family
DX: R19.7 Diarrhea, unspecified (principal)
CPT/HCPCS: 82705; 87493

== ENCOUNTER 2025-07-17 11:26 | Day surgery (SDC) | payer OTHER, SELFPAY ==
--- NOTE | 2025-07-12 14:53 | HO.ANESPROP2 ---
Documented by User: Rere Hutson NP 07/12/25 14:53 HPI - Anesthesia Eval Consult details Narrative: 45 yr old female upper endoscopy, colonoscopy [facility] Active Problems Active Problems: All Active Problems Obesity (BMI 30.0-34.9) (Acute) Annual physical exam (Acute) Family history of breast cancer (Acute) Cervical cancer screening (Acute) History of hysterectomy (Acute) Perimenopause (Acute) Difficulty concentrating (Acute) Right elbow pain (Acute) Atypical nevi (Acute) Contact dermatitis (Acute) Well woman exam (Acute) Elevated blood pressure reading without diagnosis of hypertension (Acute) Diarrhea (Acute) Past Medical History Medical History Vaginal discharge Family History Family History Mother Breast cancer Sister Breast cancer Thyroid cancer Surgical History Surgical History History of hysterectomy History of cholecystectomy Social History Social History Housing: House Are you a primary skin care instructor to a significant other at home: No Do you presently have visiting nurse or other home services: No Alcohol intake: never Patient Tobacco Use Status: Never used Tobacco e-Cigarette/Vaping Use: Never Used Second Hand Smoke Exposure: No Have you been hit, kicked, punched, or otherwise hurt by someone within the past year? If so, by whom?: No Are you DNR?: No Advance Directives: No Advance Directives Information Provided: Yes service: No Current occupational status: employed Cognitive needs: No Hearing needs: No Vision needs: No Meds Allergies Allergy/AdvReac Type Severity Reaction Status Date / Time No Known Allergies Allergy Verified 07/17/25 11:37 Documented by User: Rosi Castro MD 07/17/25 12:26 [facility] Past Medical History Medical History Vaginal discharge Family History Family History Mother Breast cancer Sister Breast cancer Thyroid cancer Family history of problems with anesthesia: No Surgical History Surgical History History of hysterectomy History of cholecystectomy History of Problems with Anesthesia: No Social History Social History Housing: House Are you a primary skin care instructor to a significant other at home: No Do you presently have visiting nurse or other home services: No Alcohol intake: never Patient Tobacco Use Status: Never used Tobacco e-Cigarette/Vaping Use: Never Used Second Hand Smoke Exposure: No Have you been hit, kicked, punched, or otherwise hurt by someone within the past year? If so, by whom?: No Are you DNR?: No Advance Directives: No Advance Directives Information Provided: Yes service: No Current occupational status: employed Cognitive needs: No Hearing needs: No Vision needs: No Meds Allergies Allergy/AdvReac Type Severity Reaction Status Date / Time No Known Allergies Allergy Verified 07/17/25 11:37 Exam Airway Mallampati Class: II (implant bottom left, cap ) TM Dist: >3cm Neck ROM: Full Heart: rrr Lungs: cta Assessment and Plan Assessment Anesthesia Assessment: Anesthesia Plan Discussed and Chart Reviewed Final Anesthetic Review Family History of Problems with Anesthesia: No History of Problems with Anesthesia: No NPO: Yes ASA Class: II Final Preanesthetic Review: No Changes in Pt Med Stat, Meds/Allgs Chart Reviewed and Consent Obtained/Reviewed Patient Risk: Intermediate Procedure Risk: Intermediate Anesthetic Plan Anesthetic Plan: MAC: Disposition: Standard PACU
[2025-07-17 11:35] VITALS: BMI 33.0
--- NOTE | 2025-07-17 11:45 | MHC.SHP ---
Pre-Procedural Eval Section A - 24 Hr Update-Section A only Date of Service: 07/17/25 The patient is an INPATIENT: No The patient has been examined within 24 hours of the surgical procedure. The History & Physical has been completed within 30 days and I have reviewed it.: No Section B - Complete if H&P > 30 days Chief Complaint: Postcholecystectomy syndrome,screening Relevant Family History (Specify if Yes): No Relevant Social History: None Present Medications: see Short Stay Collaborative assessment Medical History: Significant History (Contact dermatitis, Obesity, vaginal discharge) History of Previous Operations: Relevant previous surgery/procedure and date(s) (History of hysterectomy History of cholecystectomy) Allergies: Allergies Allergy/AdvReac Type Severity Reaction Status Date / Time No Known Allergies Allergy Verified 07/17/25 11:37 Review of Systems Sugical H&P ROS: Negative: Constitution, Cardiovascular and Respiratory and Yes, Specify: Gastrointestinal (Postprandial diarrhea) Exam Surgical H&P Exam: Normal: Heart, Normal: Lungs, Normal: Extremities and Normal: Abdomen Plan Diagnosis/Plan: Unchanged I have reviewed the history and physical and performed a pertinent physical examination on my patient. No changes have occurred unless specified. Time Spent With Patient Time: Total time managing care of this patient today ____ minutes.
[2025-07-17] MEDS: Lactated Ringers 1,000 ML 100 ML IVCONT (11:50)
[2025-07-17 11:53] VITALS: BP 158/100; PULSE 103; RESP 18; TEMP 36.7; O2SAT 97
--- NOTE | 2025-07-17 12:24 | PC.NURSE ---
anesthesia aware of b/p
--- NOTE | 2025-07-17 12:34 | HO.OPN-COLON ---
Colonoscopy Operative Note Operative Note Date of Service: 07/17/25 Narrative: FLEXIBLE TRANSORAL UPPER GASTROINTESTINAL ENDOSCOPY WITH BIOPSIES AND COLONOSCOPY TILL CECUM WITH BIOPSIES, SNARE POLYPECTOMY AND HEMOCLIP PLACEMENT Pre-op diagnosis: Colon cancer screening, postprandial diarrhea Post-op diagnosis: Hernia hernia, Gastritis, gastric polyp, Colon Polyps, Diverticulosis, hemorrhoids Endoscopist:? Wilberto Shen MD Anesthesia:?MAC UPPER ENDOSCOPY Consent: Indications for the procedure and potential complications of bleeding, perforation, reaction to medications and missed diagnosis were discussed with the patient and informed consent was obtained. Instrument: Olympus GIF H 190 mid size upper endoscope Monitoring: Vital signs and clinical assessment, continuous EKG monitoring, Pulse oximetry, Carbon Dioxide monitoring and blood pressure monitoring were done throughout the procedure. Procedure: The patient was placed in the left lateral decubitis position and pre-procedure medications were administered and a bite block was placed. The endoscope was inserted into the mouth and advanced under direct vision to the third part of duodenum. A careful inspection was made as the upper endoscope was withdrawn including a retroflexed examination of the proximal stomach; Findings and interventions are described below. Findings: Larynx: Normal Esophagus: GE junction at 36 cms, small hiatal hernia 36 to 38 cms. No esophagitis or Pond's. Stomach: A 3-4 mm benign appearing polyp in the gastric fundus - biopsied. Mild antral erythema - biopsies were obtained from the antrum. Grade 2 flap valve on retroflexed examination of the cardia. Duodenum: Normal bulb and descending duodenum Biopsies were obtained from descending duodenum to check for celiac sprue Intervention: Biopsies as noted above COLONOSCOPY PROCEDURE NOTE Instrument: Olympus PCF H 190 L variable stiffness pediatric colonoscope Monitoring: Vital signs and clinical assessment, intermittent blood pressure monitoring, continuous EKG monitoring, Pulse oximetry and Carbon Dioxide monitoring were done throughout the procedure. Please see anesthesia flowsheet. Colon withdrawl time was 21 minutes. Procedure: The patient was placed in the left lateral decubitis position and pre-procedure medications were administered. After a digital rectal examination of the ano-rectum, the video colonoscope was inserted into the rectum and advanced through the colon to the cecum. The colonoscope was slowly withdrawn in a retrograde panoramic fashion and the colon mucosa was carefully examined including a retroflexed view of the rectum. Findings and interventions are described below. Procedure Difficulty: without difficulty Findings: Terminal Ileum: Not evaluated Cecum: Normal Ascending Colon: Normal Transverse Colon: Normal Descending Colon: Normal Sigmoid Colon: A 12-15 mm sessile polyp at 40 cms - removed with hot snare. Polypectomy site was closed with 1 hemoclip. Moderate diverticulosis Rectum: Normal Ano-rectum: Moderate internal hemorrhoids Colon preparation: Good after copious irrigation. Barnard Bowel Preparation Scale Right colon; 2 Transverse colon: 2 Left colon; 2 (0 = Unprepared colon segment with mucosa not seen due to solid stool that cannot be cleared. 1 = Portion of mucosa of the colon segment seen, but other areas of the colon segment not well seen due to staining, residual stool and/or opaque liquid. 2 = Minor amount of residual staining, small fragments of stool and/or opaque liquid, but mucosa of colon segment seen well. 3 = Entire mucosa of colon segment seen well with no residual staining, small fragments of stool or opaque liquid) Impression and Post Procedure Diagnosis: Endoscopy Findings: ESOPHAGUS: Small hiatal hernia, no esophagitis or Pond's. STOMACH: Mild antral gastritis and benign-appearing gastric polyp DUODENUM: Normal - biopsied to check for celiac sprue. Colonoscopy Findings: One medium sized polyp was removed Random biopsies were obtained from right and left colon to check for microscopic colitis. Moderate diverticulosis seen in the entire colon Small hemorrhoids on retroflexed exam. Plan: Pt to schedule a FU appointment with Melony Perdue NP Repeat Colonoscopy in 3-5 years if polyps are adenomatous and 10 years if polyps are hyperplastic.. A summary of above findings and relevant handouts were given to the patient. BIOPSIES SHOWED: A. Small bowel, biopsy: Small intestinal mucosa within normal limits. B. Stomach, antrum, biopsy: Antral-type mucosa with moderate chronic inactive inflammation; no Helicobacter organisms identified. C. Stomach, polypectomy: Clinically polypoid oxyntic mucosa with mild chronic inactive inflammation; no Helicobacter organisms identified. D. Colon, right, biopsy: Colonic mucosa within normal limits. E. Colon, left, biopsy: Colonic mucosa within normal limits. F. Colon, sigmoid, polypectomy: Tubular adenoma; negative for high-grade dysplasia or carcinoma. Comment: Diagnostic morphologic features of celiac disease or microscopic colitis are not seen Letter sent to the patient with biopsy results. Patient was placed on the colonoscopy recall list for repeat colonoscopy in 3 years.
[2025-07-17 13:25] VITALS: BP 158/99; PULSE 92; RESP 18; TEMP 36.1; O2SAT 98
[2025-07-17 13:40] VITALS: BP 172/100; PULSE 85; RESP 17; TEMP 36.4; O2SAT 99
== END 2025-07-17 14:13 | disposition home or self-care (01) ==
PROVIDERS: Visit Provider Internal Medicine Gastroenterology
PROC: (CPT 45380; principal; 2025-07-17 13:00)
DX: Z12.11 Encounter for screening for malignant neoplasm of colon (principal); K91.5 Postcholecystectomy syndrome; K52.9 Noninfective gastroenteritis and colitis, unspecified; K57.30 Diverticulosis of large intestine without perforation or abscess without bleeding; K31.7 Polyp of stomach and duodenum; K64.8 Other hemorrhoids; D12.5 Benign neoplasm of sigmoid colon; K29.70 Gastritis, unspecified, without bleeding; K44.9 Diaphragmatic hernia without obstruction or gangrene
CPT/HCPCS: 45380; 45385; 43239; 88305; 88313; 88342; J2250

== ENCOUNTER → 2025-07-17 11:26 | Outpatient (BNV) | payer OTHER, SELFPAY | PROVIDERS: Visit Provider Internal Medicine Gastroenterology | DX: Z12.11 Encounter for screening for malignant neoplasm of colon (principal); K63.5 Polyp of colon; K57.30 Diverticulosis of large intestine without perforation or abscess without bleeding; K64.8 Other hemorrhoids; K31.7 Polyp of stomach and duodenum; K29.70 Gastritis, unspecified, without bleeding | CPT/HCPCS: 43239; 45385 ==